=== PATIENT | male | born 1955 | race Caucasian/White ===

== ENCOUNTER 2016-10-18 09:41 | Emergency (ER) | payer MEDICARE, OTHER ==
[~2016-10-18] VITALS: Ht 177.8 cm; Wt 97.0 kg
[~2016-10-18 09:41] MED LIST: ASPI325T PO; ATEN-100 PO; CEPH500C3 PO; COUM1TAB PO; GABA600T PO; HYDR-3534 PO; LISI-360 PO; MAXZ25 PO; PRAV40TA PO
[2016-10-18 09:46] VITALS: BP 139/75; PULSE 72; RESP 16; TEMP 97.7; O2SAT 97
[2016-10-18] MEDS ORDERED: ACETAMINOPHEN/HYDROcodone 325 MG/5 MG TAB PO ONE (10:30)
[2016-10-18] MEDS ORDERED: OMEP20TA PO (10:33)
[2016-10-18] MEDS ORDERED: WARF4TAB52 PO (10:33)
[2016-10-18] MEDS ORDERED: AMIT50TA3 PO (10:33)
[2016-10-18] MEDS ORDERED: sleeping pill (10:33)
[2016-10-18] MEDS ORDERED: GABA600T PO (10:33)
[2016-10-18] MEDS ORDERED: antidepressant (10:33)
[2016-10-18] MEDS ORDERED: cholesterol med (10:33)
--- NOTE | 2016-10-18 10:34 | PD ---
HPI Chief Complaint: Injury Time Seen by Provider: 10:16 Travel History International Travel<30 days: No Contact w/Intl Traveler<30days: No Traveled to known affect area: No History of Present Illness HPI 61-year-old male states he tripped and fell and twisted his left ankle and now has pain from his knee down on that side. He states he did not hit his head or black out. He denies other concurrent complaints. Quality pain is sharp. Severity is moderate. Pain is worse with movement. He denies other modifying factors. PFSH Past Medical History Hx Anticoagulant Therapy: Yes (WARFARIN) Atrial Fibrillation: Yes Depression: Yes Cardiovascular Problems: Yes (A-FIB) High Cholesterol: Yes COPD: Yes GERD: Yes Hypertension: Yes Musculoskeletal: Yes (chronic back pain ) Social History Alcohol Use: No Tobacco Use: Yes (1 ppd) Substance Use: No Allergies-Medications (Allergen,Severity, Reaction): Coded Allergies: No Known Allergies (Unverified , 10/18/16) Reported Meds & Prescriptions Reported Meds & Active Scripts Active Lortab (Hydrocodone-Acetaminophen) 5-325 Mg Tab 1 Tab PO Q6H PRN Reported Omeprazole 20 Mg Tab 20 Mg PO DAILY [cholesterol med] [sleeping pill] Amitriptyline (Amitriptyline HCl) 50 Mg Tab 50 Mg PO HS Gabapentin 600 Mg Tab 600 Mg PO TID [antidepressant] Warfarin 1 Mg Tab 1 Mg PO DAILY Review of Systems Except as stated in HPI: all other systems reviewed are Neg Physical Exam Narrative General: 61 y/o patient in no apparent distress Skin: trauma noted to left ankle with swelling Eyes: pupils are equal NECK: no pain with ROM Cardiovascular: Regular rate and rhythm Respiratory: normal respiratory effort noted Extremities: Pain with palpation of right ankle, no lacerations over, neurovascularly intact, no pain with rom of other joints Neuro: awake, alert, sensation and motor grossly intact Data Data Last Documented VS Vital Signs Date Time Temp Pulse Resp B/P Pulse Ox O2 Delivery O2 Flow Rate FiO2 10/18/16 09:46 97.7 72 16 139/75 97 Orders Ankle, Complete ([id number]) (10/18/16 10:20) Foot, Complete (Cck7bsn) (10/18/16 10:20) Tibia/Fibula (Ap/Lat) (10/18/16 10:20) Acetamin-Hydrocod 325-5 Mg ([place] 5-325 (10/18/16 10:30) MDM Medical Decision Making Medical Screen Exam Complete: Yes Emergency Medical Condition: Yes Medical Record Reviewed: Yes (pmh confirmed) Interpretation(s) Last 24 hours Impressions Foot X-Ray 10/18/16 1020 Signed Impressions: Service Date/Time: Tuesday, October 18, 2016 10:31 - CONCLUSION: Negative for fracture or dislocation. Followup in 7-10 days is suggested if symptoms persist. Meir Haney MD FACR ankle and tib fib no acute fracture per radiology Differential Diagnosis Fracture, strain, sprain Narrative Course We will check x-ray and dose with a medication reevaluate Patient denies any new complaints and states that they are feeling better. Patient happy with care, all questions answered. Patient knows that follow up is incumbent on them and to return to the emergency room immediately if new or worsening symptoms develop. Patient given strict return precautions, vitals reviewed and are normal, agrees to further workup as an outpatient. Diagnosis Primary Impression: Left ankle sprain Qualified Code: S93.402A - Sprain of left ankle, unspecified ligament, initial encounter Patient Instructions: General Instructions Additional Instructions: lortab as needed for severe pain-don't take while driving, follow with primary for recheck, return as needed Med/Other Pt SpecificInfo: Prescription(s) given Scripts Hydrocodone-Acetaminophen (Lortab)5-325 Mg Tab1 Tab PO Q6H PRN (PAIN) #15 TAB Prov:Roxy Hay MD 10/18/16 Disposition: 01 DISCHARGE HOME Condition: Stable Roxy Hay MD Oct 18, 2016 10:34
--- NOTE | 2016-10-18 11:00 | RADHPO ---
EXAM DATE/TIME: 10/18/2016 10:31 [facility] COMPARISON: No previous studies available for comparison. INDICATIONS : Left foot pain/swelling post fall. MEDICAL HISTORY : Hypertension. Hypercholesterolemia. Cholelithiasis. GERD. A-fib. SURGICAL HISTORY : Back. Neck. Bilateral shoulders. ENCOUNTER: Initial ACUITY: 1 day PAIN SCORE: 10/10 LOCATION: Left foot FINDINGS: Three view examination of the left foot demonstrates no soft tissue swelling, dislocation, or fractur e. The tarsal bones appear intact. The interphalangeal and metatarsophalangeal joints are intact. The calcaneus is intact. Bony mineralization is normal. CONCLUSION: Negative for fracture or dislocation. Followup in 7-10 days is suggested if symptoms persist. Meir Haney MD FACR on October 18, 2016 at 10:58 Board Certified Radiologist. This report was verified electronically.
--- NOTE | 2016-10-18 11:08 | RADHPO ---
EXAM DATE/TIME: 10/18/2016 10:30 [facility] COMPARISON: No previous studies available for comparison. INDICATIONS: Left distal tibia/fibula pain & swelling post fall. MEDICAL HISTORY: Hypertension. Hypercholesterolemia. Chronic obstructive pulmonary disease. GERD. A-fib. SURGICAL HISTORY: Back. Neck. Bilateral shoulders. ENCOUNTER: Initial ACUITY: 1 day PAIN SCORE: 10/10 LOCATION: Left Tibia/fibula. FINDINGS: There is soft tissue swelling of the left lateral malleolus. Medial malleolus is intact. Minimal pl sammy spurring is evident. Fracture is not appreciated. CONCLUSION: Soft tissue swelling lateral malleolus. Meir Haney MD FACR on October 18, 2016 at 10:57 Board Certified Radiologist. This report was verified electronically.
--- NOTE | 2016-10-18 11:10 | RADHPO ---
EXAM DATE/TIME: 10/18/2016 10:30 [facility] COMPARISON: No previous studies available for comparison. INDICATIONS: Left ankle pain/swelling post fall. MEDICAL HISTORY: Hypertension. Hypercholesterolemia. Chronic obstructive pulmonary disease. GERD. A-fib. SURGICAL HISTORY: Back. Neck. Bilateral shoulders. ENCOUNTER: Initial ACUITY: 1 day PAIN SCORE: 10/10 LOCATION: Left ankle FINDINGS: There is minimal soft tissue swelling lateral malleolus. Medial malleolus is intact. Bone density i s normal, alignment is anatomic. Fracture not appreciated. Minimal plantar spurring is evident. CONCLUSION: Minimal soft tissue swelling lateral malleolus. Meir Haney MD FACR on October 18, 2016 at 10:58 Board Certified Radiologist. This report was verified electronically.
[2016-10-18] MEDS ORDERED: HYDR-3533 PO (11:42)
== END 2016-10-18 11:53 | disposition home or self-care (01) ==
LOC: PHED 09:41
DX: S93.402A Sprain of unspecified ligament of left ankle, initial encounter (principal); I48.91 Unspecified atrial fibrillation; E78.00 Pure hypercholesterolemia, unspecified; J44.9 Chronic obstructive pulmonary disease, unspecified; I10 Essential (primary) hypertension; F32.9 Major depressive disorder, single episode, unspecified; F17.210 Nicotine dependence, cigarettes, uncomplicated; W01.0XXA Fall on same level from slipping, tripping and stumbling without subsequent striking against object, initial encounter; Y93.9 Activity, unspecified; Y92.9 Unspecified place or not applicable; Y99.9 Unspecified external cause status
CPT/HCPCS: 73590; 73610; 73630; 99283